=== PATIENT | female | born 1940 | race Caucasian/White ===

== ENCOUNTER → 2018-04-25 | Outpatient (CLI) | payer MEDICARE, OTHER ==
[~2018-04-25] MED LIST: B COMPLEX1 EAC1; BONIVA150 MG PO; BONIVA3 MG/3 ML; CALCIUM 500 +1 EAC5; CARVEDILOL25 MG; COUMADIN 5 MG TA5 M1; COUMADIN 5 MG TA5 M1 PO; FOSAMAX 70 MG T70 M1; HYDROCODON-ACE1 EAC7 PO; HYDROCODON-ACE1 EACH PO; KEFLEX500 MG PO; MEDROLDOSEPACK PO; MULTIVITAMINS1 EAC7; PRINIVIL5 MG; SIMVASTATIN20 MG PO; SYNTHROID75 MCG; VITAMIN D3400 UNI1; ZOCOR 20 MG TAB20 M1
== END ==
LOC: M.RAD 09:00
DX: M85.89 Other specified disorders of bone density and structure, multiple sites (principal); R92.8 Other abnormal and inconclusive findings on diagnostic imaging of breast; M19.90 Unspecified osteoarthritis, unspecified site; I10 Essential (primary) hypertension; E03.9 Hypothyroidism, unspecified; I48.91 Unspecified atrial fibrillation; D05.12 Intraductal carcinoma in situ of left breast; Z78.0 Asymptomatic menopausal state

== ENCOUNTER → 2019-05-02 | Outpatient (CLI) | payer MEDICARE, OTHER ==
[2019-05-01 10:01] LABS: INR 2.5; PROTIME 24.8 Seconds (9.20-11.50)
== END ==
LOC: M.RAD 09:40
PROVIDERS: Registered Nurse Diabetes Educator
DX: C50.812 Malignant neoplasm of overlapping sites of left female breast (principal); I48.20 Chronic atrial fibrillation, unspecified; Z92.3 Personal history of irradiation; Z79.01 Long term (current) use of anticoagulants

== ENCOUNTER 2019-06-20 05:43 | Inpatient (IN) | payer MEDICARE, OTHER ==
[~2019-06-20] VITALS: Ht 162.6 cm; Wt 70.3 kg
[~2019-06-20 05:43] MED LIST changes: +B COMPLEX WITH1 EAC1 PO; -B COMPLEX1 EAC1; -CARVEDILOL25 MG; +CARVEDILOL25 MG PO; -SYNTHROID75 MCG; +SYNTHROID75 MCG PO; +VITAMIN D31000 UNI3 PO; -VITAMIN D3400 UNI1; +ZOCOR 20 MG TAB20 M1 PO
[2019-06-20 05:45] VITALS: BP 175/82
[2019-06-20 06:01] LABS: ABSOLUTE EOSINOPHILS 0.1 thou/uL (0.0-0.7); ABSOLUTE LYMPHOCYTES 1.3 thou/uL (0.8-5.3); ABSOLUTE MONOCYTES 0.5 thou/uL (0.0-1.2); BASOPHILS 0.8 %; EOSINOPHILS 2.7 %; HEMATOCRIT 36.9 % (37.0-47.0); HEMOGLOBIN 12.2 gm/dL (12.0-15.0); MCH 29.7 pg (26.0-34.0); MCHC 33.2 g/dL (28.0-37.0); MCV 89.4 fL (80.0-100.0); MONOCYTES 10.8 %; MPV 10.5 fl. (7.2-11.1); NUCLEATED RBCS 0 /100WBC; PLATELET COUNT* 165 thou/uL (150-400); POLYS 59.7 %; RBC 4.12 mil/uL (4.20-5.00); RDW-CV 14.1 % (10.5-14.5)
[2019-06-20 06:14] LABS: CALCIUM 8.6 mg/dL (8.5-10.1); CREATININE 0.7 mg/dL (0.6-1.3); INR 2.4; POTASSIUM 3.7 mmol/L (3.5-5.1); PROTIME 24.3 Seconds (9.20-11.50)
[2019-06-20 06:21] LABS: ALBUMIN 3.9 g/dL (3.4-5.0); TOTAL BILIRUBIN 0.6 mg/dL (<0.1-1.0); TOTAL PROTEIN 7.9 g/dL (6.4-8.2)
[2019-06-20 08:45] VITALS: BP 138/57
[2019-06-20 08:53] VITALS: BP 175/82
[2019-06-20] MEDS ORDERED: COUMADIN 5 MG TA5 M1 PO (09:36)
--- NOTE | 2019-06-20 10:00 | EKG ---
[place] [address] ELECTROCARDIOGRAM REPORT Name: GUTIERREZ SLAUGHTER Room: [address] ADM IN M.R.#: [id number] Admission: 06/20/19 Attend Phys: Patricia Moss Discharge: Date of : 36 Report #: [id number] THIS REPORT FOR: //name// [facility] ED Test Date: 2019-06-20 Test Time: 05:48:38 Pat Name: GUTIERREZ SLAUGHTER Department: Room: [facility] Gender: F [employer]: JACKIE : 1940 Requested By: Savannah Galdamez Order Number: [id number] MD: Christoph Mcmullen Measurements Intervals [place] Rate: 90 P: MO: QRS: 16 QRSD: 93 T: 54 QT: 378 QTc: 463 Interpretive Statements Atrial fibrillation Ventricular premature complex Low voltage, extremity leads Compared to ECG 03/12/2012 14:06:28 Ventricular premature complex(es) now present Electronically Signed On 06-20-2019 10:00:19 OPERATIVE SUPERVISOR by Christoph Mcmullen [email or web address] <ELECTRONICALLY SIGNED> By: Christoph Mcmullen MD, [facility] 06/20/19 1000 0548 0548 Christoph Mcmullen MD, [facility] /EPI
[2019-06-20 15:58] VITALS: BP 109/54
--- NOTE | 2019-06-20 18:03 | CARDNUC ---
[place] [address] CARDIAC NUCLEAR IMAGING REPORT Name: GUTIERREZ SLAUGHTER Room: [address] IN [facility]#: [id number] Admission: 06/20/19 Attend Phys: Patricia chavez Sa Discharge: Date of : 36 Date of Service: 06/20/19 1802 Report #: [id number] THIS REPORT FOR: //name// APPROVED REPORT Study performed: 06/20/2019 10:28:00 Indication: Chest pain Patient Location: In-Patient Room #: 208 Stress Tech: Elizabeth Bernstein Stress Nurse: Ysabel Deleon RN Ht: 5 ft 4 in Wt: 165 lbs BSA: 1.80 m2 BMI: 28.31 Medical History Medical History: Angina, Atrial Fibrillation, Cardiomyopathy, Arrhythmia, Fatigue, HTN, Hyperlipidemia. Medications: Carvedilol, Warfarin, Simvastatin, Hydralazine. Allergies: Penicillins Cardiac Risk Factors: Age, FHX of CAD, HTN, Hyperlipidemia, AFib, Cardiomegaly. Previous Cardiac Procedures: Cardioversions Pretest Chest Pain Characteristics: No chest pain Exercise History: Indeterminate Physical Disabilities: AFib, weakness. Meds Held (24 hrs): Carvedilol. Resting Data Rest SPECT myocardial perfusion imaging was performed in supine position 30 minutes following the intravenous injection of 11.4 mCi of Tc-99m Sestamibi. Time of rest injection: 10:35 The images were gated to evaluate regional wall motion and calculate left ventricular ejection fraction. Administration Route: IV Administration Site: Right AC Pharmacologic Stress Pharmacologic stress test was performed by injecting Regadenoson 0.4 mg IV push over 10-15 seconds immediately followed by the intravenous injection of 34.1 mCi of Tc-99m Sestamibi. Time of stress injection: 12:00 [place] [address] CARDIAC NUCLEAR IMAGING REPORT Name: GUTIERREZ SLAUGHTER Room: [address] IN M.R.#: [id number] Admission: 06/20/19 Attend Phys: Patricia chavez Sa Discharge: Date of : 36 Date of Service: 06/20/191801 Report #: [id number] Administration Route: IV Administration Site: Right AC Heart Rate at time of stress injection: 103 bpm. Gated Stress SPECT was performed 45 minutes after stress injection. The images were gated to evaluate regional wall motion and calculate left ventricular ejection fraction. Prone imaging was performed. Stress Test Details Stress Test: Pharmacologic stress testing performed using 0.4 mg of regadenoson per 5 mL given IV over 10 seconds. Reason for pharmacologic stress test: Afib, weakness.. HR Max Heart Rate (APMHR): 140 bpm Resting HR: 93 bpm Target HR (85% APMHR): 119 bpm Max HR Achieved: 117 bpm % of APMHR: 83 Recovery HR: 98 bpm HR response to stress: Normal HR response to stress BP Resting BP: 136/86 mmHg Max BP: 128/72 mmHg Recovery BP: 153/73 mmHg BP response to stress: Normal blood pressure response to stress. ECG Resting ECG: Atrial Fibrillation otherwise normal EKG Stress ECG: Atrial Fibrillation otherwise normal EKG ST Change: None Arrhythmia: Atrial fibrillation Recovery ECG: Atrial Fibrillation otherwise normal EKG Recovery ST Change: None Recovery Arrhythmia: Atrial Fibrillation Clinical Reason for Termination: Completed protocol Stress Symptoms: Labored breathing. Exercise duration: 00 min 00 sec Exercise capacity: 1.00 METs Nurse Comments An 78 year old female inpatient presented for sitting Lexiscan r/t recent CP and Afib. Test well tolerated. Recovery unremarkable with PO caffeine, effective. Patient was escorted by [place] [address] CARDIAC NUCLEAR IMAGING REPORT Name: GUTIERREZ SLAUGHTER Room: [address]#: [id number] Admission: 06/20/19 Attend Phys: Patricia chavez Sa Discharge: Date of : 36 Date of Service: 06/20/19 180 Report #: [id number] to Nuclear Medicine for images. Patient was stable and stated she felt good at that time. Stress ECG Conclusion Normal hemodynamic response to pharmacologic stress. Non-diagnostic EKG stress due to failure to attain target HR. Study Quality Study: Good Artifact: Mild Soft tissue attenuation artifact Lung Uptake: Normal Study Data At rest, the left ventricular ejection fraction was 77%.. Post stress, the left ventricular ejection was 60%.. SSS: 0 SRS: 0 SDS: C TID = 0.98. Perfusion The resting images demonstrate a small mild apical defect. The post stress images demonstrated a small very mild apical defect and a small very mild anterior defect. The prone images were normal there were no defects seen. There therefore no reversible defects seen is no evidence of myocardial ischemia. Images were reviewed using [employer]. Wall Motion Normal left ventricular wall motion. Nuclear Conclusion ECG Findings: non-diagnostic Clinical Findings: negative for ischemia Nuclear Findings: negative for ischemia Exercise Capacity: not assessed Left Ventricular Function: normal Risk Study: low Normal study. No scintigraphic evidence for myocardial ischemia or scar. <Conclusion> [place] [address] CARDIAC NUCLEAR IMAGING REPORT Name: GUTIERREZ SLAUGHTER Room: [address] IN [facility]#: [id number] Admission: 06/20/19 Attend Phys: Patricia chavez Sa Discharge: Date of : 36 Date of Service: 06/20/19 1802 Report #: [id number] Normal hemodynamic response to pharmacologic stress. Non-diagnostic EKG stress due to failure to attain target HR. <ELECTRONICALLY SIGNED> By: Debbie Hurtado MD, FACC 06/20/191801 01 01 Debbie Hurtado MD, FAC /INF
[2019-06-20 20:23] VITALS: BP 97/56
[2019-06-21] VITALS: BP 122/63
[2019-06-21 04:00] VITALS: BP 127/76
[2019-06-21 05:10] LABS: ABSOLUTE EOSINOPHILS 0.1 thou/uL (0.0-0.7); ABSOLUTE LYMPHOCYTES 1.4 thou/uL (0.8-5.3); ABSOLUTE MONOCYTES 0.5 thou/uL (0.0-1.2); BASOPHILS 0.9 %; EOSINOPHILS 2.9 %; HEMATOCRIT 34.6 % (37.0-47.0); HEMOGLOBIN 11.4 gm/dL (12.0-15.0); LYMPHOCYTES 27.5 %; MCH 29.5 pg (26.0-34.0); MCV 89.3 fL (80.0-100.0); MONOCYTES 10.1 %; MPV 10.6 fl. (7.2-11.1); NUCLEATED RBCS 0 /100WBC; PLATELET COUNT* 151 thou/uL (150-400); POLYS 58.6 %; RBC 3.88 mil/uL (4.20-5.00); RDW-CV 13.7 % (10.5-14.5)
[2019-06-21 05:31] LABS: CALCIUM 8.6 mg/dL (8.5-10.1); CREATININE 0.6 mg/dL (0.6-1.3)
[2019-06-21 08:00] VITALS: BP 126/49
[2019-06-21 12:00] VITALS: BP 126/49
[2019-06-21 12:45] VITALS: BP 126/49
== END 2019-06-21 13:42 | disposition home or self-care (01) | DRG 313 ==
LOC: M.ERS 05:43 → M.TBA-ER 07:14 → M.2W 07:14
PROVIDERS: Emergency Medicine; Internal Medicine; ADMIT Family Medicine
DX: R07.89 Other chest pain (principal); I48.20 Chronic atrial fibrillation, unspecified; E03.9 Hypothyroidism, unspecified; I10 Essential (primary) hypertension; E78.5 Hyperlipidemia, unspecified; M19.90 Unspecified osteoarthritis, unspecified site; G47.33 Obstructive sleep apnea (adult) (pediatric); Z88.0 Allergy status to penicillin; Z82.49 Family history of ischemic heart disease and other diseases of the circulatory system; Z79.01 Long term (current) use of anticoagulants

== ENCOUNTER → 2019-07-20 | Outpatient (CLI) | payer MEDICARE, OTHER | LOC: M.RAD 14:40 | DX: M16.12 Unilateral primary osteoarthritis, left hip (principal); M47.816 Spondylosis without myelopathy or radiculopathy, lumbar region ==

== ENCOUNTER → 2020-01-04 | Outpatient (CLI) | payer MEDICARE, OTHER | LOC: M.RAD 14:50 | PROVIDERS: ATTEND Registered Nurse Diabetes Educator | DX: R06.02 Shortness of breath (principal); R07.89 Other chest pain ==

== ENCOUNTER → 2020-04-26 | Outpatient (CLI) | payer MEDICARE, OTHER | LOC: M.RAD 10:00 | PROVIDERS: ATTEND Registered Nurse Diabetes Educator | DX: Z85.3 Personal history of malignant neoplasm of breast (principal) ==

== ENCOUNTER → 2020-05-31 | Outpatient (CLI) | payer MEDICARE, OTHER | LOC: M.RAD 10:45 | PROVIDERS: ATTEND Registered Nurse Diabetes Educator | DX: N95.9 Unspecified menopausal and perimenopausal disorder (principal) ==

== ENCOUNTER → 2021-04-28 | Outpatient (CLI) | payer MEDICARE, OTHER | LOC: M.RAD 09:52 | PROVIDERS: ATTEND Surgery | DX: Z12.31 Encounter for screening mammogram for malignant neoplasm of breast (principal); Z85.3 Personal history of malignant neoplasm of breast ==

== ENCOUNTER → 2021-05-26 | Outpatient (CLI) | payer MEDICARE, OTHER | LOC: M.ULTRA 09:07 | PROVIDERS: ATTEND Registered Nurse Diabetes Educator | DX: R19.7 Diarrhea, unspecified (principal) ==